=== PATIENT | female | born 1990 | race American Indian/Alaskan Native ===

== ENCOUNTER 2017-05-30 09:44 | Emergency (ER) | payer MEDICAID ==
[2017-05-30 11:13] VITALS: BP 113/83
[2017-05-30] MEDS ORDERED: TORADOL IM ONE (12:22)
--- NOTE | 2017-05-30 12:32 | Emergency Department Report ---
ED ENT HPI - General Chief complaint: Dental/Oral Stated complaint: TOOTH ACHE Time Seen by Provider: 05/30/17 12:10 Source: patient Mode of arrival: Ambulatory Limitations: No Limitations - History of Present Illness Initial comments: This is a 27-year-old female nontoxic, well nourished in appearance, no acute signs of distress presents to the ED with c/o of toothache 2 days. She denies any facial swelling, chest trauma, chest pain, short of breath, fever, chills, nausea, vomiting, headache, stiff neck, numbness or tingling. Patient denies any allergies. Patient stated it is a chronic intermittent pain. She has not followed up with a dentist due to no income. MD complaint: tooth pain -: Gradual, year(s) Location: tooth # () 1 - toothache Severity: mild Severity scale (0 -10): 8 Quality: aching Consistency: constant Improves with: none Worsens with: none Context- Dental: history of dental caries, poor dental care Associated Symptoms: gum swelling, toothache. denies: fever, cough, pain with swallowing, sore throat, tinnitus, hearing loss, discharge from ear, rhinorrhea - Related Data Previous Rx's Medication Instructions Recorded Last Taken Type Amoxicillin/K Clav Tab [Augmentin 1 tab PO Q12HR #20 tab 05/30/17 Unknown Rx 875 mg] Chlorhexidine Mouthwash [Peridex] 15 ml MM BID #1 bottle 05/30/17 Unknown Rx traMADol [Ultram] 50 mg PO Q6HR PRN #12 tablet 05/30/17 Unknown Rx Allergies Allergy/AdvReac Type Severity Reaction Status Date / Time No Known Allergies Allergy Unverified 05/30/17 11:10 ED Dental HPI - General Chief complaint: Dental/Oral Stated complaint: TOOTH ACHE Time Seen by Provider: 05/30/17 12:10 Source: patient Mode of arrival: Ambulatory Limitations: No Limitations - Related Data Previous Rx's Medication Instructions Recorded Last Taken Type Amoxicillin/K Clav Tab [Augmentin 1 tab PO Q12HR #20 tab 05/30/17 Unknown Rx 875 mg] Chlorhexidine Mouthwash [Peridex] 15 ml MM BID #1 bottle 05/30/17 Unknown Rx traMADol [Ultram] 50 mg PO Q6HR PRN #12 tablet 05/30/17 Unknown Rx Allergies Allergy/AdvReac Type Severity Reaction Status Date / Time No Known Allergies Allergy Unverified 05/30/17 11:10 ED Review of Systems ROS: Stated complaint: TOOTH ACHE Other details as noted in HPI Constitutional: denies: chills, fever Eyes: denies: eye pain, eye discharge, vision change ENT: dental pain. denies: ear pain, throat pain Respiratory: denies: cough, shortness of breath, wheezing Cardiovascular: denies: chest pain, palpitations Endocrine: no symptoms reported Gastrointestinal: denies: abdominal pain, nausea, diarrhea Genitourinary: denies: urgency, dysuria, discharge Musculoskeletal: denies: back pain, joint swelling, arthralgia Skin: denies: rash, lesions Neurological: denies: headache, weakness, paresthesias Psychiatric: denies: anxiety, depression Hematological/Lymphatic: denies: easy bleeding, easy bruising ED Past Medical Hx - Past Medical History Previous Medical History?: Yes Additional medical history: Dental caries - Surgical History Past Surgical History?: No - Social History Smoking Status: Current Every Day Smoker Substance Use Type: Alcohol, Marijuana - Medications Home Medications: Home Medications Medication Instructions Recorded Confirmed Last Taken Type Amoxicillin/K Clav Tab [Augmentin 1 tab PO Q12HR #20 tab 05/30/17 Unknown Rx 875 mg] Chlorhexidine Mouthwash [Peridex] 15 ml MM BID #1 bottle 05/30/17 Unknown Rx traMADol [Ultram] 50 mg PO Q6HR PRN #12 tablet 05/30/17 Unknown Rx ED Physical Exam - General Limitations: No Limitations General appearance: alert, in no apparent distress - Head Head exam: Present: atraumatic, normocephalic, normal inspection - Eye Eye exam: Present: normal appearance, PERRL, EOMI. Absent: scleral icterus, conjunctival injection, periorbital swelling, periorbital tenderness - ENT ENT exam: Present: mucous membranes moist, TM's normal bilaterally, normal external ear exam - Expanded ENT Exam Expanded Ear exam: Present: normal external inspection Mouth exam: Present: normal external inspection, tongue normal. Absent: drooling, trismus, muffled voice, tongue elevation, laceration Teeth exam: Present: dental caries, fractured tooth # (31/32), dental tenderness # (31/32), gingival enlargement, other (No facial swelling or abscess noted) 1 - Fractured, Dental Tenderness Throat exam: Positive: normal inspection, other (uvula midline). Negative: tonsillar erythema, tonsillomegaly, tonsillar exudate, R peritonsillar mass, L peritonsillar mass - Neck Neck exam: Present: normal inspection, full ROM. Absent: tenderness, meningismus, lymphadenopathy, thyromegaly - Respiratory Respiratory exam: Present: normal lung sounds bilaterally. Absent: respiratory distress, wheezes, rales, rhonchi, stridor, chest wall tenderness, accessory muscle use, decreased breath sounds, prolonged expiratory - Cardiovascular Cardiovascular Exam: Present: regular rate, normal rhythm, normal heart sounds. Absent: bradycardia, tachycardia, irregular rhythm, systolic murmur, diastolic murmur, rubs, gallop - GI/Abdominal GI/Abdominal exam: Present: soft, normal bowel sounds - Extremities Exam Extremities exam: Present: normal inspection - Back Exam Back exam: Present: normal inspection - Neurological Exam Neurological exam: Present: alert, oriented X3 - Psychiatric Psychiatric exam: Present: normal affect, normal mood - Skin Skin exam: Present: warm, dry, intact, normal color. Absent: rash ED Course Vital Signs 05/30/17 11:10 Temperature 98.7 F Pulse Rate 83 Respiratory 16 Rate Blood Pressure 113/83 O2 Sat by Pulse 100 Oximetry - Reevaluation(s) Reevaluation #1: 05/30/17 12:31 Patient is speaking in full sentences with no signs of distress noted. Critical care attestation.: If time is entered above; I have spent that time in minutes in the direct care of this critically ill patient, excluding procedure time. ED Disposition Clinical Impression: Dental caries, Gingivitis Disposition: - TO HOME OR SELFCARE Is pt being admited?: No Does the pt Need Aspirin: No Condition: Stable Instructions: Dental Caries (ED), Gingivitis (ED), Tramadol (By mouth), Amoxicillin/Clavulanate Potassium (By mouth) Additional Instructions: Follow-up with a dentist in 3-5 days or if symptoms worsen and continue return to emergency room as soon as possible. Do not operate any machinery while taking Ultram due to drowsiness Prescriptions: Amoxicillin/K Clav Tab [Augmentin 875 mg] 1 tab PO Q12HR #20 tab Chlorhexidine Mouthwash [Peridex] 15 ml MM BID #1 bottle traMADol [Ultram] 50 mg PO Q6HR PRN #12 tablet PRN Reason: Pain Referrals: CHRISTA REED MD [Primary Care Provider] - 3-5 Days [facility] [Outside] - 3-5 Days Forms: Work/School Release Form(ED)
== END 2017-05-30 13:17 | disposition home or self-care (01) ==
LOC: EDSEX → ED 09:44
DX: K02.9 Dental caries, unspecified (principal); K05.10 Chronic gingivitis, plaque induced; F12.10 Cannabis abuse, uncomplicated; F17.200 Nicotine dependence, unspecified, uncomplicated
CPT/HCPCS: 96372; 99282; J1885

== ENCOUNTER 2018-11-27 00:48 | Emergency (ER) | payer MEDICAID ==
[2018-11-27 01:22] LABS: Basophils # (Auto) 0.1 K/mm3 (0.0-0.1); Basophils % (Auto) 0.6 % (0.0-1.8); Eosinophils # (Auto) 0.1 K/mm3 (0.0-0.4); Eosinophils % (Auto) 0.9 % (0.0-4.3); Hematocrit 44.3 % (30.3-42.9); Hemoglobin 15.3 gm/dl (10.1-14.3); Lymphocytes # (Auto) 2.1 K/mm3 (1.2-5.4); Lymphocytes % (Auto) 23.7 % (13.4-35.0); Mean Corpuscular HGB Conc 34 % (30-34); Mean Corpuscular Volume 97 fl (79-97); Monocytes # (Auto) 0.7 K/mm3 (0.0-0.8); Monocytes % (Auto) 8.2 % (0.0-7.3); Platelet Count 183 K/mm3 (140-440); Red Blood Count 4.57 M/mm3 (3.65-5.03); Red Cell Distribution Width 13.9 % (13.2-15.2)
[2018-11-27 01:30] LABS: Bilirubin,Urine NEG (Negative); Blood,Urine MOD (Negative); Color,Urine Straw (Yellow); Mucus,Urine FEW /HPF; Protein,Urine <15 mg/dL mg/dL (Negative); Urobilinogen,Urine < 2.0 mg/dL (<2.0)
[2018-11-27 01:36] LABS: BUN/Creatinine Ratio 10; Blood Urea Nitrogen 7 mg/dL (7-17); Calcium 8.3 mg/dL (8.4-10.2); Hemolysis Index 7
[2018-11-27 02:24] LABS: Amphetamine Screen,Urine PRESUMPTIVE NEGATIVE; Benzodiazepines Screen,Urine PRESUMPTIVE NEGATIVE; Cocaine Screen,Urine PRESUMPTIVE NEGATIVE; Methadone Screen,Urine PRESUMPTIVE NEGATIVE; Opiate Screen,Urine PRESUMPTIVE NEGATIVE
[2018-11-27 02:45] LABS: Cannabinoid Screen,Urine PRESUMPTIVE POSITIVE
--- NOTE | 2018-11-27 07:27 | Emergency Department Report ---
ED General Adult HPI - General Chief complaint: Alcohol Stated complaint: CLEARANCE Time Seen by Provider: 11/27/18 06:55 Source: patient, RN notes reviewed Mode of arrival: Ambulatory Limitations: No Limitations - History of Present Illness Initial comments: This is a 28-year-old female, not known to this provider previously, presents to the emergency room today with complaint of painless alcohol intoxication. Patient would like to return to [facility]. She denies physical pain. She is not homicidal or suicidal. She is not having hallucinations. Apparently, she was sent here by [facility], for medical clearance Severity scale (0 -10): 0 Improves with: none Worsens with: none Associated Symptoms: denies other symptoms - Related Data Previous Rx's Medication Instructions Recorded Last Taken Type Amoxicillin/K Clav Tab [Augmentin 1 tab PO Q12HR #20 tab 05/30/17 Unknown Rx 875 mg] Chlorhexidine Mouthwash [Peridex] 15 ml MM BID #1 bottle 05/30/17 Unknown Rx traMADol [Ultram] 50 mg PO Q6HR PRN #12 tablet 05/30/17 Unknown Rx Multivitamin with Folic Acid [[facility] 400 mcg PO QDAY #30 tablet 11/27/18 Unknown Rx One Daily Essential Tablet] Allergies Allergy/AdvReac Type Severity Reaction Status Date / Time No Known Allergies Allergy Unverified 05/30/17 11:10 ED Review of Systems ROS: Stated complaint: CLEARANCE Other details as noted in HPI Comment: All other systems reviewed and negative Psychiatric: denies: homicidal thoughts, suicidal thoughts ED Past Medical Hx - Past Medical History Previous Medical History?: No Additional medical history: Dental caries - Surgical History Past Surgical History?: No - Social History Smoking Status: Current Every Day Smoker Substance Use Type: Alcohol - Medications Home Medications: Home Medications Medication Instructions Recorded Confirmed Last Taken Type Amoxicillin/K Clav Tab [Augmentin 1 tab PO Q12HR #20 tab 05/30/17 Unknown Rx 875 mg] Chlorhexidine Mouthwash [Peridex] 15 ml MM BID #1 bottle 05/30/17 Unknown Rx traMADol [Ultram] 50 mg PO Q6HR PRN #12 tablet 05/30/17 Unknown Rx Multivitamin with Folic Acid [[facility] 400 mcg PO QDAY #30 tablet 11/27/18 Unknown Rx One Daily Essential Tablet] ED Physical Exam - General Limitations: No Limitations General appearance: alert, in no apparent distress - Head Head exam: Present: atraumatic, normocephalic - Eye Eye exam: Present: normal appearance, EOMI. Absent: nystagmus - ENT ENT exam: Present: normal exam, normal orophraynx, mucous membranes moist, normal external ear exam - Neck Neck exam: Present: normal inspection, full ROM. Absent: tenderness, meningismus - Respiratory Respiratory exam: Present: normal lung sounds bilaterally. Absent: respiratory distress - Cardiovascular Cardiovascular Exam: Present: regular rate, normal rhythm, normal heart sounds. Absent: bradycardia, tachycardia, irregular rhythm, systolic murmur, diastolic murmur, rubs, gallop - GI/Abdominal GI/Abdominal exam: Present: soft. Absent: distended, tenderness, guarding, rebound, rigid, pulsatile mass - Extremities Exam Extremities exam: Present: normal inspection, full ROM, other (2+ pulses noted in the bilateral upper, lower extremities. Compartments soft. No long bony tenderness. The pelvis is stable.). Absent: pedal edema - Back Exam Back exam: Present: normal inspection, full ROM. Absent: tenderness, CVA tenderness (R), CVA tenderness (L), paraspinal tenderness, vertebral tenderness - Neurological Exam Neurological exam: Present: alert, oriented X3, normal gait, other (Extraocular movements intact. Tongue midline. No facial droop. Facial sensation intact to light touch in the V1, V2, V3 distribution bilaterally. 5 and 5 strength in 4 extremities.. Sensation is intact to light touch in 4 extremities.). Absent: CN II-XII intact, motor sensory deficit - Psychiatric Psychiatric exam: Present: normal affect, normal mood. Absent: homicidal i deation, suicidal ideation - Skin Skin exam: Present: warm, dry, intact, normal color. Absent: rash ED Course Vital Signs 11/27/18 11/27/18 00:52 06:43 Temperature 97.7 F 98.0 F Pulse Rate 105 H 93 H Respiratory 18 16 Rate Blood Pressure 119/82 Blood Pressure 97/56 [Left] O2 Sat by Pulse 98 96 Oximetry ED Medical Decision Making - Lab Data Result diagrams: 11/27/18 00:57 11/27/18 00:57 Vital Signs 11/27/18 11/27/18 00:52 06:43 Temperature 97.7 F 98.0 F Pulse Rate 105 H 93 H Respiratory 18 16 Rate Blood Pressure 119/82 Blood Pressure 97/56 [Left] O2 Sat by Pulse 98 96 Oximetry Lab Results 11/27/18 11/27/18 11/27/18 Range/Units 00:57 00:57 00:57 WBC (4.5-11.0) K/mm3 RBC (3.65-5.03) M/mm3 Hgb (10.1-14.3) gm/dl Hct (30.3-42.9) % MCV (79-97) fl MCH (28-32) pg MCHC (30-34) % RDW (13.2-15.2) % Plt Count (140-440) K/mm3 Lymph % (Auto) (13.4-35.0) % [place] % (Auto) (0.0-7.3) % Eos % (Auto) (0.0-4.3) % Baso % (Auto) (0.0-1.8) % Lymph # (1.2-5.4) K/mm3 [place] # (0.0-0.8) K/mm3 Eos # (0.0-0.4) K/mm3 Baso # (0.0-0.1) K/mm3 Seg Neutrophils % (40.0-70.0) % Seg Neutrophils # (1.8-7.7) K/mm3 Sodium 140 (137-145) mmol/L Potassium 4.2 (3.6-5.0) mmol/L Chloride 108.7 H (98-107) mmol/L Carbon Dioxide 20 L (22-30) mmol/L Anion Gap 16 mmol/L BUN 7 (7-17) mg/dL Creatinine 0.7 (0.7-1.2) mg/dL Estimated GFR > 60 ml/min BUN/Creatinine Ratio 10 % Glucose 90 (65-100) mg/dL Calcium 8.3 L (8.4-10.2) mg/dL HCG, Qual (Negative) Urine Color (Yellow) Urine Turbidity (Clear) Urine pH (5.0-7.0) Ur Specific [place] (1.003-1.030) Urine Protein (Negative) mg/dL Urine Glucose (UA) (Negative) mg/dL Urine Ketones (Negative) mg/dL Urine Blood (Negative) Urine Nitrite (Negative) Urine Bilirubin (Negative) Urine Urobilinogen (<2.0) mg/dL Ur Leukocyte Esterase (Negative) Urine WBC (Auto) (0.0-6.0) /HPF Urine RBC (Auto) (0.0-6.0) /HPF U Epithel Cells (Auto) (0-13.0) /HPF Urine Mucus /HPF Salicylates < 0.3 L (2.8-20.0) mg/dL Urine Opiates Screen Urine Methadone Screen Acetaminophen < 5.0 L (10.0-30.0) ug/mL Ur Barbiturates Screen Ur Phencyclidine Scrn Ur Amphetamines Screen U Benzodiazepines Scrn Urine Cocaine Screen U Marijuana (THC) Screen Drugs of Abuse Note Plasma/Serum Alcohol (0-0.07) % 11/27/18 11/27/18 11/27/18 Range/Units 00:57 00:57 00:57 WBC 9.0 (4.5-11.0) K/mm3 RBC 4.57 (3.65-5.03) M/mm3 Hgb 15.3 H (10.1-14.3) gm/dl Hct 44.3 H (30.3-42.9) % MCV 97 (79-97) fl MCH 33 H (28-32) pg MCHC 34 (30-34) % RDW 13.9 (13.2-15.2) % Plt Count 183 (140-440) K/mm3 Lymph % (Auto) 23.7 (13.4-35.0) % [place] % (Auto) 8.2 H (0.0-7.3) % Eos % (Auto) 0.9 (0.0-4.3) % Baso % (Auto) 0.6 (0.0-1.8) % Lymph # 2.1 (1.2-5.4) K/mm3 [place] # 0.7 (0.0-0.8) K/mm3 Eos # 0.1 (0.0-0.4) K/mm3 Baso # 0.1 (0.0-0.1) K/mm3 Seg Neutrophils % 66.6 (40.0-70.0) % Seg Neutrophils # 6.0 (1.8-7.7) K/mm3 Sodium (137-145) mmol/L Potassium (3.6-5.0) mmol/L Chloride (98-107) mmol/L Carbon Dioxide (22-30) mmol/L Anion Gap mmol/L BUN (7-17) mg/dL Creatinine (0.7-1.2) mg/dL Estimated GFR ml/min BUN/Creatinine Ratio % Glucose (65-100) mg/dL Calcium (8.4-10.2) mg/dL HCG, Qual Negative (Negative) Urine Color (Yellow) Urine Turbidity (Clear) Urine pH (5.0-7.0) Ur Specific [place] (1.003-1.030) Urine Protein (Negative) mg/dL Urine Glucose (UA) (Negative) mg/dL Urine Ketones (Negative) mg/dL Urine Blood (Negative) Urine Nitrite (Negative) Urine Bilirubin (Negative) Urine Urobilinogen (<2.0) mg/dL Ur Leukocyte Esterase (Negative) Urine WBC (Auto) (0.0-6.0) /HPF Urine RBC (Auto) (0.0-6.0) /HPF U Epithel Cells (Auto) (0-13.0) /HPF Urine Mucus /HPF Salicylates (2.8-20.0) mg/dL Urine Opiates Screen Urine Methadone Screen Acetaminophen (10.0-30.0) ug/mL Ur Barbiturates Screen Ur Phencyclidine Scrn Ur Amphetamines Screen U Benzodiazepines Scrn Urine Cocaine Screen U Marijuana (THC) Screen Drugs of Abuse Note Plasma/Serum Alcohol 0.16 H (0-0.07) % 11/27/18 11/27/18 Range/Units 01:05 01:05 WBC (4.5-11.0) K/mm3 RBC (3.65-5.03) M/mm3 Hgb (10.1-14.3) gm/dl Hct (30.3-42.9) % MCV (79-97) fl MCH (28-32) pg MCHC (30-34) % RDW (13.2-15.2) % Plt Count (140-440) K/mm3 Lymph % (Auto) (13.4-35.0) % [place] % (Auto) (0.0-7.3) % Eos % (Auto) (0.0-4.3) % Baso % (Auto) (0.0-1.8) % Lymph # (1.2-5.4) K/mm3 [place] # (0.0-0.8) K/mm3 Eos # (0.0-0.4) K/mm3 Baso # (0.0-0.1) K/mm3 Seg Neutrophils % (40.0-70.0) % Seg Neutrophils # (1.8-7.7) K/mm3 Sodium (137-145) mmol/L Potassium (3.6-5.0) mmol/L Chloride (98-107) mmol/L Carbon Dioxide (22-30) mmol/L Anion Gap mmol/L BUN (7-17) mg/dL Creatinine (0.7-1.2) mg/dL Estimated GFR ml/min BUN/Creatinine Ratio % Glucose (65-100) mg/dL Calcium (8.4-10.2) mg/dL HCG, Qual (Negative) Urine Color Straw (Yellow) Urine Turbidity Clear (Clear) Urine pH 5.0 (5.0-7.0) Ur Specific [place] 1.004 (1.003-1.030) Urine Protein <15 mg/dl (Negative) mg/dL Urine Glucose (UA) Neg (Negative) mg/dL Urine Ketones Neg (Negative) mg/dL Urine Blood Mod (Negative) Urine Nitrite Neg (Negative) Urine Bilirubin Neg (Negative) Urine Urobilinogen < 2.0 (<2.0) mg/dL Ur Leukocyte Esterase Tr (Negative) Urine WBC (Auto) 3.0 (0.0-6.0) /HPF Urine RBC (Auto) 3.0 (0.0-6.0) /HPF U Epithel Cells (Auto) 1.0 (0-13.0) /HPF Urine Mucus Few /HPF Salicylates (2.8-20.0) mg/dL Urine Opiates Screen Presumptive negative Urine Methadone Screen Presumptive negative Acetaminophen (10.0-30.0) ug/mL Ur Barbiturates Screen Presumptive negative Ur Phencyclidine Scrn Presumptive negative Ur Amphetamines Screen Presumptive negative U Benzodiazepines Scrn Presumptive negative Urine Cocaine Screen Presumptive negative U Marijuana (THC) Screen Presumptive positive Drugs of Abuse Note Disclamer Plasma/Serum Alcohol (0-0.07) % - Medical Decision Making Differential diagnosis, including not limited to: Medical clearance, alcohol intoxication Assessment and plan: 28-year-old female, with resolved alcohol intoxication, with no additional medical complaints at this time. Patient clinically sober, walking with a steady gait, with an unremarkable physical and neurologic examination. The patient does not meet 1013 criteria. The patient does not appear to have an emergent medical condition at this time. The patient at this point in time appears to be medically suitable for outpatient follow-up and management. Critical care attestation.: If time is entered above; I have spent that time in minutes in the direct care of this critically ill patient, excluding procedure time. ED Disposition Clinical Impression: Alcohol intoxication Qualifiers: Complication of substance-induced condition: uncomplicated Qualified Code(s): F10.920 - Alcohol use, unspecified with intoxication, uncomplicated Disposition: DC-01 TO HOME OR SELFCARE Is pt being admited?: No Does the pt Need Aspirin: No Condition: Stable Additional Instructions: Continue outpatient medications. Be mindful when consuming alcohol, and do not drive, operate motor vehicles, or make important decisions, or combine with other sedating substances. Patient at this point in time does not have an immediate medical contraindication to outpatient detox, and outpatient psychiatric management and follow-up. The patient should follow-up with a primary care doctor within the next 4-6 weeks, please return to the emergency r oom right away with new, worsening or different symptoms not present on the initial emergency room evaluation. Referrals: ASAEL PORTILLO MD [Primary Care Provider] - 3-5 Days
[2018-11-27 08:07] VITALS: BP 104/62
== END 2018-11-27 08:20 | disposition home or self-care (01) ==
LOC: ED 00:48
DX: F10.920 Alcohol use, unspecified with intoxication, uncomplicated (principal); F17.200 Nicotine dependence, unspecified, uncomplicated; Z79.899 Other long term (current) drug therapy
CPT/HCPCS: 36415; 80048; 80307; 81001; 84703; 85025; 99283; G0480; 80320

== ENCOUNTER 2020-05-12 17:59 | Emergency (ER) | payer MEDICAID ==
[2020-05-12 18:39] LABS: Hematocrit 35.5 % (30.3-42.9); Hemoglobin 12.2 gm/dl (10.1-14.3); Mean Corpuscular HGB Conc 34 % (30-34); Mean Corpuscular Volume 96 fl (79-97); Platelet Count 163 K/mm3 (140-440)
[2020-05-12 18:57] LABS: Blood Urea Nitrogen 7 mg/dL (7-17); Calcium 9.3 mg/dL (8.4-10.2); Hemolysis Index 10
[2020-05-12 19:11] LABS: Total Cells Counted 100
[2020-05-12 19:12] LABS: Basophils % (Manual) 0 % (0.0-1.8); Eosinophils % (Manual) 0 % (0.0-4.3)
[2020-05-12 19:14] LABS: Anisocytosis 1+; Platelet Estimate Consistent w Auto
[2020-05-12 19:23] LABS: BUN/Creatinine Ratio 10
--- NOTE | 2020-05-12 19:26 | Emergency Department Report ---
ED General Adult HPI - General Chief complaint: Psych Stated complaint: PYSCH/SUICIDAL THOUGHTS Time Seen by Provider: 05/12/20 19:12 Source: patient Mode of arrival: Ambulatory Limitations: No Limitations - History of Present Illness Initial comments: Patient is a 30-year-old female with a past medical history of chronic alcohol abuse, marijuana use and anxiety who presents emergency room for evaluation for her mental health concerns. Patient states that she has a history of cocaine, alcohol, ecstasy, prescription pill use however has not used for several years. Patient states that her last marijuana use was 1 to 2 days ago and she is concerned that someone may have laced her marijuana supply with substances that are making her hallucinate and feel paranoid. Patient states that she is having both auditory and visual hallucinations. Patient does have history of prior hospitalization. Most recently 6 months ago she was seen at [facility] and admitted. Patient denies alcohol use today. However when probed about systemic symptoms patient states she feels dehydrated, nauseous and has had issues with sleep. Her review of systems is otherwise negative. Per chart review patient was seen at [facility] earlier today and was ultimately discharged with Ativan and Librium taper. Patient states that she did not fill the prescripti ons that were provided to her. Her triage report states that she endorses suicidal ideation however when asked 3 times during the interview process patient denies any homicidal ideation, suicidal ideation or having any recent homicidal or suicidal attempts. - Related Data Previous Rx's Medication Instructions Recorded Last Taken Type traMADoL [Ultram] 50 mg PO Q6HR PRN #12 tablet 05/30/17 Unknown Rx Multivitamin with Folic Acid [[facility] 400 mcg PO QDAY #30 tablet 11/27/18 Unknown Rx One Daily Essential Tablet] Allergies Allergy/AdvReac Type Severity Reaction Status Date / Time No Known Allergies Allergy Unverified 05/30/17 11:10 ED Review of Systems ROS: Stated complaint: PYSCH/SUICIDAL THOUGHTS Other details as noted in HPI Constitutional: denies: chills, fever Eyes: denies: eye pain, eye discharge, vision change ENT: denies: ear pain, throat pain Respiratory: denies: cough, shortness of breath, wheezing Cardiovascular: denies: chest pain, palpitations Endocrine: no symptoms reported Gastrointestinal: denies: abdominal pain, nausea, diarrhea Genitourinary: denies: urgency, dysuria, discharge Musculoskeletal: denies: back pain, joint swelling, arthralgia Skin: denies: rash, lesions Neurological: denies: headache, weakness, paresthesias Psychiatric: anxiety, auditory hallucinations, visual hallucinations. denies: depression, homicidal thoughts, suicidal thoughts Hematological/Lymphatic: denies: easy bleeding, easy bruising ED Past Medical Hx - Past Medical History Previous Medical History?: No Additional medical history: Dental caries, substance abuse - Surgical History Past Surgical History?: No - Social History Smoking Status: Current Every Day Smoker Substance Use Type: Alcohol - Medications Home Medications: Home Medications Medication Instructions Recorded Confirmed Last Taken Type traMADoL [Ultram] 50 mg PO Q6HR PRN #12 tablet 05/30/17 05/12/20 Unknown Rx Multivitamin with Folic Acid [[facility] 400 mcg PO QDAY #30 tablet 11/27/18 05/12/20 Unknown Rx One Daily Essential Tablet] ED Physical Exam - General Limitations: No Limitations General appearance: alert, in no apparent distress - Head Head exam: Present: atraumatic, normocephalic - Eye Eye exam: Present: normal appearance - ENT ENT exam: Present: mucous membranes moist - Neck Neck exam: Present: normal inspection - Respiratory Respiratory exam: Present: normal lung sounds bilaterally. Absent: respiratory distress - Cardiovascular Cardiovascular Exam: Present: regular rate, normal rhythm. Absent: systolic murmur, diastolic murmur, rubs, gallop - GI/Abdominal GI/Abdominal exam: Present: soft, normal bowel sounds - Extremities Exam Extremities exam: Present: normal inspection - Back Exam Back exam: Present: normal inspection - Neurological Exam Neurological exam: Present: alert, oriented X3 - Psychiatric Psychiatric exam: Present: normal affect, normal mood, anxious. Absent: suicidal ideation - Skin Skin exam: Present: warm, dry, intact, normal color. Absent: rash ED Course Vital Signs 05/12/20 05/12/20 20:15 21:00 Temperature 99.2 F Pulse Rate 105 H Respiratory 18 18 Rate Blood Pressure 146/99 [Left] O2 Sat by Pulse 100 100 Oximetry - Reevaluation(s) Reevaluation #1: 05/12/20 20:18 decision made to 1013 the patient as she is now pacing the hallway and responding to internal stimuli, concern exist for the patient ability to care for herself. Potassium has been replaced. MH recs and eval pending. Reevaluation #3: 05/12/20 23:16 Nursing staff brought wbcs in urine to my attention. Patient has no signs of UTI, no nitrites, no leukocyte esterase, she also has epithelial cells in her urine. My suspicion is low for UTI. Will not treat for UTI at this time. Reevaluation #4: 05/12/20 23:27 requested repeat potassium, repeat has been ordered. - Consultations Consultation #1: 05/12/20 21:46 patient case discussed with provider, dispo pending. ED Medical Decision Making - Lab Data Result diagrams: 05/12/20 18:23 05/12/20 23:31 - Medical Decision Making Patient is a 30-year-old female with a past medical history of polysubstance abuse who presents emergency room for evaluation of auditory and visual hallucinations. Patient initially endorsed suicidal ideation however after much probing she denies any suicidal ideation or a specific plan. Basic labs were ordered to evaluate for toxic metabolic etiologies that may precipitate changes in mental status. Her VS stable and remarkable only for low grade tachycardia. A mental health consult was requested. A 1013 was deferred until mental health consult was completed additional recommendations pending dispo pending ED work- up. Critical Care Time: No Critical care attestation.: If time is entered above; I have spent that time in minutes in the direct care of this critically ill patient, excluding procedure time. ED Disposition Clinical Impression: Auditory hallucinations, Hypokalemia, Visual hallucinations, Agitation, Unable to care for self Disposition: [id number] PSY HOSP/PSY UNIT Is pt being admited?: No Does the pt Need Aspirin: No Condition: Stable Referrals: PRIMARY CARE, [Primary Care Provider] - 3-5 Days
[2020-05-12] MEDS ORDERED: POTASSIUM CHLORIDE 10 MEQ 10 MEQ/100 ML BAG IV ONE (19:35)
[2020-05-12 19:38] LABS: Bacteria,Urine 2+ /HPF (Negative); Bilirubin,Urine NEG (Negative); Blood,Urine LG (Negative); Color,Urine Amber (Yellow); Mucus,Urine FEW /HPF; Urobilinogen,Urine < 2.0 mg/dL (<2.0)
[2020-05-12 19:43] LABS: Amphetamine Screen,Urine PRESUMPTIVE NEGATIVE; Benzodiazepines Screen,Urine PRESUMPTIVE NEGATIVE; Cannabinoid Screen,Urine PRESUMPTIVE POSITIVE; Cocaine Screen,Urine PRESUMPTIVE NEGATIVE; Methadone Screen,Urine PRESUMPTIVE NEGATIVE; Opiate Screen,Urine PRESUMPTIVE NEGATIVE
[2020-05-12] MEDS ORDERED: K-LYTE 25 MEQ TABLET EFF PO STA (19:45)
[2020-05-12] MEDS ORDERED: LORazepam 1 MG TAB PO ONE (19:46)
[2020-05-12] MEDS ORDERED: ACETAMINOPHEN 325 MG TAB PO ONE (22:01)
[2020-05-13] MEDS ORDERED: ZIPRASIDONE MESYLATE 20 MG VIAL IM ONE (01:42)
--- NOTE | 2020-05-13 08:15 | Consultation ---
History of Present Illness - Reason for Consult Consult date: 05/13/20 Reason for consult: MHE Requesting physician: MARCOS ESTRADA - History of Present Psychiatric Illness Per ED Provider: Patient is a 30-year-old female with a past medical history of chronic alcohol abuse, marijuana use and anxiety who presents emergency room for evaluation for her mental health concerns. Patient states that she has a history of cocaine, alcohol, ecstasy, prescription pill use however has not used for several years. Patient states that her last marijuana use was 1 to 2 days ago and she is concerned that someone may have laced her marijuana supply with substances that are making her hallucinate and feel paranoid. Patient states that she is having both auditory and visual hallucinations. Patient does have history of prior hospitalization. Most recently 6 months ago she was seen at [facility] and admitted. Patient denies alcohol use today. However when probed about systemic symptoms patient states she feels dehydrated, nauseous and has had issues with sleep. Her review of systems is otherwise negative. Per chart review patient was seen at [facility] earlier today and was ultimately discharged with Ativan and Librium taper. Patient states that she did not fill the prescriptions that were provided to her. Her triage report states that she endorses suicidal ideation however when asked 3 times during the interview process patient denies any homicidal ideation, suicidal ideation or having any recent homicidal or suicidal attempts. Per MHE: Pt is a 30 y/o female who presents to the ED for a MHE. During triage note, pt states she is having SI, pt was discharge from [facility] for same complaint. pt states "they did not keep me so i came here" pt states "i think i have drugs in my system. i believe someone is poisoning me. During current ax, pt presents with depressed mood and flat affect. Pt has poor concentration, attention, and unable to maintain eye contact. Pt is actively responding to internal stimuli looking around the room, and has difficulty comp leting sentences. Pt reports Im not in my right mind. Admits to auditory and visual hallucinations. Unable to verbalize if hallucinations are command in nature. Pt endorses SI w/o plan due to relapsing on alcohol use. Onset one week ago. Reports using alcohol use daily. In the amount of 6-8 8ounce beers. Hx of depression, anxiety, and alcohol abuse. No current outpatient provider. Noncompliant with psychiatric medications for six months. Reports a decrease in sleep and appetite. Pt provided her mother, Kvng Sanchez [phone] contact information and consent to speak with her. Spoke with pts mother and she indicated that pt was hallucinating prior to arriving to [facility]. Reports that pt was preparing to get in the shower and experiencing auditory hallucinations. Pt indicated that someone was coming to get me to kill me. Pt believes that she is being poisoned by her friends. Pt matamoros s poor appetite and noticed loss of weight. PSYCH HPI Patient is a 30-year-old, unemployed, single with child currently in custody of mother, -French female with past psychiatric history of anxiety and depression and no significant past medical history who presented to the ED which chief complaint of hallucination. Patient reports she she feels like someone has been trying to poison and drugs her, she says she has been hearing voices, says the voices are random reportedly bothering her a lot, to the point where she was suicidal, she says yesterday she was having suicidal thoughts but none at the moment. Patient also reports relapsing on alcohol after being sober for several months, she reports relapsing about a month ago, endorses nightmares poor sleep, poor appetite but denies visual hallucination. Patient is also denies any prior history of seizure or severe withdrawal symptoms from alcohol. PAST PSYCHIATRIC HISTORY Diagnoses: Depression, Anxiety Suicide attempts or Self-harm behavior: None reported Prior psychiatric hospitalizations: Yes Substance Abuse history: alcohol, crack cocaine Previous psychiatric medications tried: yes non compliance Outpatient treatment: none reported PAST MEDICAL HISTORY: none reported Family Psychiatric History: None reported or documented SOCIAL HISTORY Marital Status: Single Living Arrangements: rent Employment Status: unemployed Access to guns/weapons: none reported Education: 11th grade History of Abuse: none reported Legal History: yes REVIEW OF SYSTEMS Constitutional: Negative for weight loss ENT: Negative for stridor Respiratory: Negative for cough or hemoptysis All other systems reviewed and are negative MENTAL STATUS EXAMINATION General Appearance and Behavior: Age appropriate, good hygiene, wearing appropriate clothes,, good eye contact Cooperation: Participating/engaged, but Guarded Psychomotor Behavior: Psychomotor normal Mood: depressed Affect and affective range: irritable, labile Thought Process: illogical Thought Content: paranoia, helplessness Speech: Normal rate, volume and rythm Intellectual Functioning: Average Suicidal Ideation: Passive SI Homicidal Ideation: Denies HI Impulse Control: Impaired Insight and Judgment: Limited insight and judgment Memory: Normal Attention: Normal Orientation: Alert, Assessment and Plan - Psychiatric problem (1) Schizoaffective disorder Current Visit: Yes Status: Acute Treatment Plan Patient's potassium is very low, will hold off staring meds. MEDICATIONS: Risks, benefits and alternatives of medications discussed with the patient, questions answered and consent obtained from patient. PSYCHOTHERAPY: Supportive psychotherapy provided MEDICAL: Per primary team DELIRIUM PRECAUTIONS: Please re-orient patient frequently, keep lights on during the day, and minimize benzodiazepines and opiates as these medications could worsen patient's confusion. EXTRACTOR FILLER: DISPOSITION: Do Recommend acute inpatient psychiatric hospitalization at this time when medically cleared LEGAL STATUS: 1013 FOLLOW-UP: Will follow Thank you for the consult. Please contact with any questions and/or concerns. Medications and Allergies Allergies Allergy/AdvReac Type Severity Reaction Status Date / Time No Known Allergies Allergy Unverified 05/30/17 11:10 Home Medications Medication Instructions Recorded Confirmed Last Taken Type traMADoL [Ultram] 50 mg PO Q6HR PRN #12 tablet 05/30/17 05/12/20 Unknown Rx Multivitamin with Folic Acid [[facility] 400 mcg PO QDAY #30 tablet 11/27/18 05/12/20 Unknown Rx One Daily Essential Tablet] Mental Status Exam - Vital signs Last Vital Signs Temp 97.6 F 05/13/20 07:53 Pulse 90 05/13/20 07:53 Resp 18 05/13/20 07:53 BP 121/82 05/13/20 07:53 Pulse Ox 100 05/13/20 07:53 Results Result Diagrams: 05/12/20 18:23 05/12/20 23:31 Abnormal lab results 05/12/20 05/12/20 05/12/20 Range/Units 18:23 18:23 18:23 MCH (28-32) pg RDW (13.2-15.2) % Seg Neuts % (Manual) (40.0-70.0) % Lymphocytes % (Manual) (13.4-35.0) % Lymphocytes # (Manual) (1.2-5.4) K/mm3 Sodium 136 L (137-145) mmol/L Potassium 2.4 L* (3.6-5.0) mmol/L Chloride 93.3 L (98-107) mmol/L Glucose 113 H (65-100) mg/dL Urine WBC (Auto) (0.0-6.0) /HPF Salicylates < 0.3 L (2.8-20.0) mg/dL Acetaminophen 5.0 L (10.0-30.0) ug/mL 05/12/20 05/12/20 05/12/20 Range/Units 18:23 19:16 23:31 MCH 33 H (28-32) pg RDW 28.0 H (13.2-15.2) % Seg Neuts % (Manual) 86.0 H (40.0-70.0) % Lymphocytes % (Manual) 12.0 L (13.4-35.0) % Lymphocytes # (Manual) 1.0 L (1.2-5.4) K/mm3 Sodium (137-145) mmol/L Potassium 3.0 L D (3.6-5.0) mmol/L Chloride (98-107) mmol/L Glucose (65-100) mg/dL Urine WBC (Auto) 55.0 H (0.0-6.0) /HPF Salicylates (2.8-20.0) mg/dL Acetaminophen (10.0-30.0) ug/mL All other labs normal. Assessment and Plan - Psychiatric problem (1) Schizoaffective disorder Current Visit: Yes Status: Acute
[2020-05-13] MEDS ORDERED: ACETAMINOPHEN 325 MG TAB PO ONE (11:37)
[2020-05-13] MEDS ORDERED: LORazepam 1 MG TAB PO ONE (12:23)
[2020-05-13] MEDS ORDERED: POTASSIUM CHLORIDE ER 20 MEQ TAB PO ONE ×2 (12:45→20:54)
[2020-05-13] MEDS ORDERED: POTASSIUM CHLORIDE 10 MEQ 10 MEQ/100 ML BAG IV ONE (12:45)
[2020-05-13] MEDS ORDERED: MAGNESIUM SULFATE 1 GM in SODIUM CHLORIDE 0.9% 50 ML IV ONE (15:30)
[2020-05-13] MEDS ORDERED: IBUPROFEN 600 MG TAB PO ONE (19:39)
[2020-05-14] MEDS ORDERED: LORazepam 1 MG TAB PO ONE (05:32)
[2020-05-14] MEDS ORDERED: POTASSIUM CHLORIDE ER 20 MEQ TAB PO ONE (06:30)
[2020-05-14 08:33] VITALS: BP 128/82
== END 2020-05-14 16:00 ==
LOC: EEVIPCON 17:59 → ED 17:59
DX: E87.6 Hypokalemia (principal); R44.0 Auditory hallucinations; R44.1 Visual hallucinations; R45.1 Restlessness and agitation; Z78.9 Other specified health status; F41.9 Anxiety disorder, unspecified; F12.90 Cannabis use, unspecified, uncomplicated; F17.200 Nicotine dependence, unspecified, uncomplicated; Z79.899 Other long term (current) drug therapy
CPT/HCPCS: 36415; 80048; 80307; 81001; 83735; 84132; 84703; 85007; 85025; 87086; 96365; 96366; 96367; 96372; 99285; J3475; J3480; J3486; 80320; G0480

== ENCOUNTER 2021-02-27 22:52 | Emergency (ER) | payer MEDICAID | END 2021-02-27 23:50 | disposition left against medical advice (07) | LOC: ED 22:52 | DX: M79.643 Pain in unspecified hand (principal); Z53.21 Procedure and treatment not carried out due to patient leaving prior to being seen by health care provider ==